=== PATIENT | female | born 1945 | race Caucasian/White ===

== ENCOUNTER 2018-02-03 12:38 | Emergency (ER) | payer OTHER ==
[~2018-02-03] VITALS: Ht 167.6 cm; Wt 82.1 kg
[2018-02-03 13:08] LABS: microscopic required? NO
[2018-02-03 13:40] LABS: UA SPECIFIC GRAVITY <=1.005 (1.005-1.035); urine erythrocyte NEGATIVE (NEGATIVE)
[2018-02-03 14:20] VITALS: BP 105/59
== END 2018-02-03 14:50 | disposition home or self-care (01) ==
LOC: ED 12:38
PROVIDERS: Emergency Medicine
DX: S29.012A Strain of muscle and tendon of back wall of thorax, initial encounter (principal); X50.9XXA Other and unspecified overexertion or strenuous movements or postures, initial encounter; Y93.89 Activity, other specified; Y92.89 Other specified places as the place of occurrence of the external cause; Y99.8 Other external cause status
CPT/HCPCS: J1100; J1885